=== PATIENT | male | born 1955 | race Caucasian/White ===

== ENCOUNTER 2017-09-19 22:50 | Emergency (ER) | payer BC, OTHER ==
--- NOTE | 2017-09-19 22:59 | PDOC ---
History of Present Illness - General Chief Complaint: Alcohol intoxication Stated Complaint: HEADACHE/WEAKNESS Time Seen by Provider: 09/19/17 22:58 History Source: Patient, Family Exam Limitations: No Limitations - History of Present Illness Initial Comments: 09/20/17 00:13 This is a 61-year-old male who is brought in by EMS with his family, EMS because they were concerned he may be dehydrated. Patient did not want to come in and is without complaints. Patient has a history of alcohol abuse and as per his family he has been drinking heavily. Patient said that he is not homicidal or suicidal. Patient does not want detox. Patient does not want to see a psychiatrist or any intervention at this time. Patient denied any complaints. Patient denied any chest pain, shortness of breath, nausea, vomiting, diarrhea. Patient's family said that patient is at his baseline as far as his mental status and his health is concerned. Here in the emergency room it was noted that patient's O2 sat was a little on the low side however his lungs were clear and he denied any shortness of breath or respiratory complaints. His family said that he did have a intermittent mild cough. But denied any fevers or chills. PAST MEDICAL HISTORY: Hypertension as per history of present illness PAST SURGICAL HISTORY: no significant history FAMILY HISTORY: no pertinant history SOCIAL HISTORY: Pt lives with family MEDICATIONS: reviewed ALLERGIES: As per nursing notes Review of Systems General: No fevers or chills, no weakness, no weight loss HEENT: No change in vision. No sore throat,. No ear pain CardioVascular: No chest pain or shortness of breath Respiratory:No cough, or wheezing. Gastrointestinal: no nausea, vomitting, diarrhea or constipation, No rectal bleeding Genitourinary: No dysuria, hematuria, or frequency Musculoskeletal: No joint or muscle pain or swelling Neurologic: No headache, vertigo, dizziness or loss of consciousness Psychiatric: Alcohol abuse and depression Skin: No rashes or easy bruising Endocrine: no increased thirst or abnormal weight change Allergic: no skin or latex allergy All other systems reviewed and normal Exam: General: Well-nourished well-developed individual, no acute distress HEENT: Throat: Normal, tonsils normal, no erythema or exudate Neck: Supple, no meningeal signs, no lymphadenopathy Eyes::Pupils equal reactive and round, extraocular motion intact Chest: Nontender to palpation Cardiac: S1-S2 normal, regular rate and rhythm, no murmurs rubs or gallops Respiratory: Lungs clear to auscultation bilateral Abdomen: Soft, nondistended, normal bowel sounds, nontender to palpation diffusely Extremities: Warm, dry, no cyanosis, clubbing, or edema Skin: No rashes Neuro: Alert and oriented x3, nonfocal exam, grossly intact, normal gait Psych: Normal mood and affect 09/20/17 00:15 Chest x-ray shows some cardiomegaly with what appeared to be chronic interstitial changes. There is some questionable mild pulmonary vascular congestion. 09/20/17 00:17 Assessment and plan: This is a 61-year-old male who is a chronic alcoholic who does not want any rehabilitation or detox. Patient was brought in his fat by his family for evaluation. Patient had a workup including blood work which revealed no acute pathology. Patient did have some mild hyponatremia was given some IV normal saline. Patient discharged home told that he should seek help to stop drinking and follow up with his doctor. Past History - Past Medical History Allergies/Adverse Reactions: Allergies Allergy/AdvReac Type Severity Reaction Status Date / Time shellfish derived Allergy Severe Difficulty Verified 09/09/14 20:42 Breathing Home Medications: Ambulatory Orders Trandolapril/Verapamil HCl [Tarka ER 4-240 mg Tablet] 1 each PO DAILY 09/09/14 Bupropion HCl [Wellbutrin Xl -] 300 mg PO DAILY #1 tab.sr.24h 09/11/14 Chlordiazepoxide [Librium -] 10 mg PO [id number] #0 capsule 09/11/14 Metoprolol Tartrate [Lopressor -] 12.5 mg PO BID #0 tablet 09/11/14 HTN: Yes Hypercholesterolemia: Yes Psychiatric Problems: Yes (DEPRESSION) - Immunization History Immunization Up to Date: No - Suicide/Smoking/Psychosocial Hx Smoking History: Former smoker Have you smoked in the past 12 months: No If you are a former smoker, when did you quit?: 40 YRS AGO Hx Alcohol Use: Yes Drug/Substance Use Hx: No Substance Use Type: Alcohol Hx Substance Use Treatment: No ED Treatment Course - LABORATORY CBC & Chemistry Diagram: 09/19/17 23:15 09/19/17 23:15 *DC/Admit/Observation/Transfer Diagnosis at time of Disposition: Alcohol dependence Qualifiers: Substance use status: unspecified alcohol-induced disorder Qualified Code(s): F10.29 - Alcohol dependence with unspecified alcohol-induced disorder; F10.29 - Alcohol dependence with unspecified alcohol-induced disorder; F10.29 - Alcohol dependence with unspecified alcohol-induced disorder - Discharge Dispostion Disposition: HOME Condition at time of disposition: Stable - Patient Instructions Printed Discharge Instructions: DI for Alcohol Abuse Additional Instructions: It is important that you follow-up with your regular doctor. If you decide she wants to stop drinking it is important that you get detox and go to a rehabilitation program. Return to the emergency department immediately with ANY new, persistent or worsening symptoms. Continue any medications as previously prescribed by your physician. You should follow up with your primary doctor as soon as possible regarding today's emergency department visit. . Please make sure your doctor reviews the results of your emergency evaluation. Thank you for coming to the Emergency Department today for your care. It was a pleasure to see you today. Please note that your evaluation is INCOMPLETE until you follow-up with your doctor.
[2017-09-19] MEDS ORDERED: SODIUM CHLORIDE 1,000 ML IV ONE (23:01)
[2017-09-19 23:05] VITALS: BP 108/79; PULSE 87; TEMP 97.9; BMI 29.8
[2017-09-19 23:24] LABS: BASOPHIL 4.6 % (0-2.0); MCH 29.2 pg (25.7-33.7); MCHC 34.2 g/dl (32.0-35.9); MEAN CELL VOLUME 85.2 fl (80-96); MEAN PLT VOLUME 7.5 fl (7.5-11.1); NEUTROPHILS 63.2 % (42.8-82.8); RDW 15.8 % (11.9-15.9); WHITE BLOOD COUNT 8.4 K/mm3 (4.0-10.8)
[2017-09-19 23:39] LABS: ALBUMIN 3.9 g/dl (3.5-5.0); ALK PHOS 75 U/L (32-92); ANION GAP 9 (8-16); BILIRUBIN,TOTAL 0.3 mg/dl (0.2-1.0); CO2 29 mmol/L (22-28); CREATININE 0.5 mg/dl (0.6-1.3); GLUCOSE,RANDOM 124 mg/dl (74-106); SGOT/AST 54 U/L (10-42); SGPT/ALT 27 U/L (10-40); TOT PROT 6.9 g/dl (6.4-8.3)
[2017-09-19 23:48] LABS: PLATELET COUNT 225 K/MM3 (134-434)
[2017-09-19 23:49] LABS: PLATELET COMMENT2 NO CLOTTING DETECTED; PLATELET COMMENT3 FEW LARGE PLTS; PLATELET ESTIMATE ADEQUATE (NORMAL)
== END 2017-09-20 00:29 | disposition home or self-care (01) ==
LOC: FER 22:50
PROC: 3E0337Z Introduction of Electrolytic and Water Balance Substance into Peripheral Vein, Percutaneous Approach (ICD-10-PCS; principal; 2017-09-19)
DX: F10.29 Alcohol dependence with unspecified alcohol-induced disorder (principal); Z87.891 Personal history of nicotine dependence; I10 Essential (primary) hypertension; E78.00 Pure hypercholesterolemia, unspecified; F32.9 Major depressive disorder, single episode, unspecified
CPT/HCPCS: 36415; 71010-TC; 80053; 85025; 99282-25